=== PATIENT | male | born 1980 | race Two or more races ===

== ENCOUNTER 2021-03-20 09:10 | Emergency (ER) | payer SELFPAY ==
[~2021-03-20] VITALS: Ht 172.7 cm; Wt 110.8 kg
[2021-03-20] MEDS ORDERED: TETRACAINE 0.5% OPHTH SOLUTION 4ML BOTTLE. ONE (09:26)
[2021-03-20] MEDS ORDERED: FLUORESCEIN OPHTH TEST STRIP. ONE (09:26)
[2021-03-20] MEDS ORDERED: TETRACAINE 0.5% OPHTH SOLUTION 4ML BOTTLE. OS ONE (09:30)
[2021-03-20] MEDS ORDERED: FLUORESCEIN OPHTH TEST STRIP. OS ONE (09:30)
[2021-03-20] MEDS ORDERED: ERYTHROMYCIN 0.5% OPHTH OINTMENT 1GM TUBE. OS ONE (09:30)
[2021-03-20 10:27] VITALS: BP 132/71
[2021-03-20] MEDS ORDERED: ERYT1OIN6 OP (10:28)
--- NOTE | 2021-03-20 10:28 | PHYS DOC ---
Past Medical History Past Surgical History: No Surgical History Smoking Status: Never Smoker Alcohol Use: None General Adult EDM: Chief Complaint: EYE PROBLEMS HPI: HPI: Patient is a 40 year old [f__sex] who presents with [] Review of Systems: Review of Systems: Constitutional: Denies fever or chills. [] Eyes: Denies change in visual acuity. [] HENT: Denies nasal congestion or sore throat. [] Respiratory: Denies cough or shortness of breath. [] Cardiovascular: Denies chest pain or edema. [] GI: Denies abdominal pain, nausea, vomiting, bloody stools or diarrhea. [] : Denies dysuria. [] Musculoskeletal: Denies back pain or joint pain. [] Integument: Denies rash. [] Neurologic: Denies headache, focal weakness or sensory changes. [] Endocrine: Denies polyuria or polydipsia. [] Lymphatic: Denies swollen glands. [] Psychiatric: Denies depression or anxiety. [] Heart Score: Risk Factors: Risk Factors: DM, Current or recent (<one month) smoker, HTN, HLP, family history of CAD, obesity. Risk Scores: Score 0 - 3: 2.5% MACE over next 6 weeks - Discharge Home Score 4 - 6: 20.3% MACE over next 6 weeks - Admit for Clinical Observation Score 7 - 10: 72.7% MACE over next 6 weeks - Early Invasive Strategies Current Medications: Current Medications Medications (Trade) Dose Ordered Sig/Jose Luis Start Time Stop Time Status Last Admin Dose Admin Erythromycin (Romycin) 0.25 inch 1X ONCE 03/20/21 09:30 03/20/21 09:31 DC Fluorescein Sodium (Ful-Shana) 1 strip STK-MED ONCE 03/20/21 09:26 03/20/21 09:26 DC Tetracaine HCl (Tetracaine) 40 drop STK-MED ONCE 03/20/21 09:26 03/20/21 09:26 DC Allergies: Allergies: Allergies Coded Allergies Type Severity Reaction Last Updated Verified No Known Drug Allergies 03/20/21 No Physical Exam: PE: Constitutional: Well developed, well nourished, no acute distress, non-toxic appearance. [] HENT: Normocephalic, atraumatic, bilateral external ears normal, oropharynx mo ist, no oral exudates, nose normal. [] Eyes: PERRLA, EOMI, conjunctiva normal, no discharge. [] Neck: Normal range of motion, no tenderness, supple, no stridor. [] Cardiovascular:Heart rate regular rhythm, no murmur [] Lungs & Thorax: Bilateral breath sounds clear to auscultation [] Abdomen: Bowel sounds normal, soft, no tenderness, no masses, no pulsatile masses. [] Skin: Warm, dry, no erythema, no rash. [] Back: No tenderness, no CVA tenderness. [] Extremities: No tenderness, no cyanosis, no clubbing, ROM intact, no edema. [] Neurologic: Alert and oriented X 3, normal motor function, normal sensory function, no focal deficits noted. [] Psychologic: Affect normal, judgement normal, mood normal. [] Current Patient Data: Vital Signs: Vital Signs Date Time Temp Pulse Resp B/P (MAP) Pulse Ox O2 Delivery O2 Flow Rate FiO2 03/20/21 09:14 98.3 73 20 150/87 (108) 97 Room Air 98.3 EKG: EKG: [] Radiology/Procedures: Radiology/Procedures: [] Course & Med Decision Making: Course & Med Decision Making Pertinent Labs and Imaging studies reviewed. (See chart for details) [] Dragon Disclaimer: [employer] Disclaimer: This electronic medical record was generated, in whole or in part, using a voice recognition dictation system. Departure Departure Impression: Primary Impression: Corneal foreign body Qualified Codes: T15.02XA - Foreign body in cornea, left eye, initial encounter Disposition: HOME / SELF CARE / HOMELESS Condition: STABLE Patient Instructions: Eye - Corneal Foreign Body Additional Instructions: Use over the counter Ibuprofen as needed for pain. May also take prescribed pain medication as needed. Scripts Hydrocodone Bit/Acetaminophen (HYDROCODONE-APAP 5-325 ) 1 Tab Tablet 0.5-1 TAB PO PRN Q6HRS PRN for PAIN, #10 TAB 0 Refills Prov: DIEGO THOMAS DO 03/20/21 Erythromycin Base (Erythromycin) 1 Gm Oint...g. 0.5 INCH OP QID for 7 Days, #1 MISC To affected eye Prov: DIEGO THOMAS DO 03/20/21 DIEGO THOMAS DO Mar 20, 2021 10:28
[2021-03-20] MEDS ORDERED: HYDR-2761 PO (10:45)
== END 2021-03-20 10:55 | disposition home or self-care (01) ==
LOC: ER 10:31
DX: T15.02XA Foreign body in cornea, left eye, initial encounter (principal); X58.XXXA Exposure to other specified factors, initial encounter; Y93.89 Activity, other specified; Y92.89 Other specified places as the place of occurrence of the external cause; Y99.8 Other external cause status
CPT/HCPCS: 99284